=== PATIENT | female | born 1975 | race Native Hawaiian/Other Pacific Islander ===

== ENCOUNTER 2019-12-15 08:23 | Outpatient (CLI) | payer OTHER ==
[~2019-12-15 08:23] MED LIST: CLONAZEP ODT0.5 MG OR; LEXAPRO10 MG OR
== END 2019-12-15 23:25 | disposition home or self-care (01) ==
LOC: MAMMO 08:23
DX: Z12.31 Encounter for screening mammogram for malignant neoplasm of breast (principal)

== ENCOUNTER 2020-12-10 08:23 | Outpatient (CLI) | payer OTHER | END 2020-12-10 19:01 | disposition home or self-care (01) | LOC: MAMMO 08:23 | PROVIDERS: ATTEND Obstetrics & Gynecology | DX: Z12.31 Encounter for screening mammogram for malignant neoplasm of breast (principal) ==

== ENCOUNTER 2021-12-24 09:51 | Outpatient (CLI) | payer OTHER | END 2021-12-24 23:22 | disposition home or self-care (01) | LOC: MAMMO 09:51 | PROVIDERS: ATTEND Obstetrics & Gynecology | DX: Z12.31 Encounter for screening mammogram for malignant neoplasm of breast (principal) ==

== ENCOUNTER 2022-01-14 13:12 | Outpatient (CLI) | payer OTHER | END 2022-01-14 21:20 | disposition home or self-care (01) | LOC: US 13:12 | PROVIDERS: ATTEND Obstetrics & Gynecology | DX: R92.2 Inconclusive mammogram (principal) ==

== ENCOUNTER 2023-01-12 08:52 | Outpatient (CLI) | payer OTHER | END 2023-01-12 18:59 | disposition home or self-care (01) | LOC: MAMMO 08:52 | PROVIDERS: ATTEND Obstetrics & Gynecology | DX: Z12.31 Encounter for screening mammogram for malignant neoplasm of breast (principal) ==